=== PATIENT | male | born 1975 | race Caucasian/White ===

== ENCOUNTER 2019-04-16 22:26 | Emergency (ER) | payer OTHER ==
[~2019-04-16] VITALS: Ht 188 cm; Wt 154.5 kg
[2019-04-16 22:31] VITALS: Ht 188 cm; Wt 154.5 kg
[2019-04-16] MEDS ORDERED: TAMIFLU75 MG PO (23:10)
[2019-04-16] MEDS ORDERED: PHENERGAN25 M1 PO (23:10)
[2019-04-16 23:27] VITALS: BP 129/76
== END 2019-04-16 23:27 | disposition home or self-care (01) ==
LOC: D.ER 22:26
DX: J10.1 Influenza due to other identified influenza virus with other respiratory manifestations (principal)